=== PATIENT | male | born 1960 | race Caucasian/White ===

== ENCOUNTER 2019-09-07 05:49 | Emergency (ER) | payer OTHER | END 2019-09-07 06:01 | LOC: ERS 05:49 | DX: I10 Essential (primary) hypertension (principal); E78.00 Pure hypercholesterolemia, unspecified; F32.9 Major depressive disorder, single episode, unspecified; F17.220 Nicotine dependence, chewing tobacco, uncomplicated; Z71.6 Tobacco abuse counseling | CPT/HCPCS: 99406 ==

== ENCOUNTER 2019-09-09 08:57 | Emergency (ER) | payer OTHER, SELFPAY ==
[2019-09-09] MEDS ORDERED: Thiamine 100 MG TAB ONE (09:45)
[2019-09-09] MEDS ORDERED: Ondansetron ODT 4 MG TAB ONE (09:45)
[2019-09-09] MEDS ORDERED: Multivit, Adult Inj 10 ML VIAL ONE (09:46)
[2019-09-09] MEDS ORDERED: Multivitamin W/ Minerals 1 TAB ONE (09:51)
[2019-09-09 09:55] LABS: #Basophils 0.1 thou/uL (0.0-0.2); #Eosinphils 0.1 thou/uL (0.0-0.7); #Lymphocytes 1.7 thou/uL (1.20-3.40); #Monocytes 0.7 thou/uL (0.11-0.59); #Neutrophils 5.6 thou/uL (1.40-6.50); %Eosinophils 1.7 % (0.0-10.0); %Lymphocytes 21.1 % (21.0-51.0); %Monocytes 8.2 % (0.0-10.0); Hemoglobin 14.5 g/dL (14.0-18.0); Mean Corpuscular HGB CONC 32.6 g/dL (32.0-36.0); Mean Corpuscular Hemoglobin 29.7 pg (27.0-31.0); Mean Corpuscular Volume 90.9 fL (78.0-98.0); Mean Platelet Volume 7.4 fL (7.4-10.4); Platelet Count 303 thou/uL (130-400); RBC Distribution Width 13.1 % (11.5-14.5); Red Blood Cell (RBC) Count 4.89 mill/uL (4.70-6.10); White Blood Cell (WBC) Count 8.2 thou/uL (4.8-10.8)
[2019-09-09 10:07] LABS: ALT (SGPT) 37 U/L (8-55); AST (SGOT) 73 U/L (5-34); Albumin 4.4 g/dL (3.4-4.8); Alcohol 68 mg/dL (Less than 10); Alkaline Phosphatase 74 U/L (40-110); Anion Gap 17 mmol/L (10-20); BUN (Urea Nitrogen) 30 mg/dL (8.4-25.7); Bilirubin, Total 0.5 mg/dL (0.2-1.2); Calc. Creatinine Clearance 0 mL/min (70-130); Calcium 9.2 mg/dL (7.8-10.44); Carbon Dioxide 20 mmol/L (23-31); Chloride 103 mmol/L (98-107); Estimated GFR-MDRD 54; Globulin 3.4 g/dL (2.4-3.5); Glucose 105 mg/dL (80-115); Potassium 3.8 mmol/L (3.5-5.1); Protein, Total 7.8 g/dL (5.8-8.1); Sodium 136 mmol/L (136-145)
== END 2019-09-09 11:37 | disposition home or self-care (01) ==
LOC: SCSER 08:57
DX: R11.2 Nausea with vomiting, unspecified (principal); I10 Essential (primary) hypertension; E78.00 Pure hypercholesterolemia, unspecified; K21.9 Gastro-esophageal reflux disease without esophagitis; F32.9 Major depressive disorder, single episode, unspecified; F17.220 Nicotine dependence, chewing tobacco, uncomplicated
CPT/HCPCS: 80053; 80307; 85025; 99284; Q0162